=== PATIENT | male | born 1945 | race Caucasian/White ===

== ENCOUNTER 2018-05-10 16:17 | Inpatient (IN) | payer OTHER ==
[~2018-05-10] VITALS: Ht 182.9 cm; Wt 93.4 kg
[2018-05-10 16:24] VITALS: BP 162/112
[2018-05-10 16:48] LABS: ABSOLUTE LYMPHOCYTES 1.5 thou/uL (0.8-5.3); ABSOLUTE MONOCYTES 0.5 thou/uL (0.0-1.2); ABSOLUTE NEUTROPHILS 5.8 thou/uL (1.6-8.1); BASOPHILS 0.5 %; EOSINOPHILS 0.1 %; LYMPHOCYTES 18.5 %; MCH 35.5 pg (26.0-34.0); MCHC 35.4 g/dL (28.0-37.0); MCV 100.4 fL (80.0-100.0); MONOCYTES 6.9 %; MPV 8.1 fl. (7.2-11.1); NUCLEATED RBCS 0 /100WBC; PLATELET COUNT* 156 thou/uL (150-400); RBC 4.78 mil/uL (4.50-6.00); RDW-CV 12.8 % (10.5-14.5); WBC 7.8 thou/uL (4.0-11.0)
[2018-05-10 16:57] LABS: ANION GAP 10 mmol/L (7-16); BUN 9 mg/dL (7-18); CALCIUM 9.5 mg/dL (8.5-10.1); CHLORIDE 102 mmol/L (98-107); CO2 25 mmol/L (21-32); CREATININE 0.9 mg/dL (0.6-1.3); GLUCOSE 97 mg/dL (70-99); POTASSIUM 3.9 mmol/L (3.5-5.1); SODIUM 137 mmol/L (136-145)
[2018-05-10 17:00] LABS: APTT 28.4 Seconds (25.0-31.3); PROTIME 10.5 Seconds (9.20-11.50)
[2018-05-10 17:13] LABS: TROPONIN-I LEVEL <0.06 ng/mL (<0.06)
[2018-05-10 17:16] LABS: ALBUMIN 4.1 g/dL (3.4-5.0); ALKALINE PHOSPHATASE 47 U/L (46-116); CK-MB MASS 1.2 ng/mL (<0.5-3.6); LIPASE 163 U/L (73-393); MAGNESIUM 1.2 mg/dL (1.8-2.4); NT-PRO BRAIN NAT PEPTIDE 321 pg/mL (<300); SGOT 46 U/L (15-37); SGPT 66 U/L (30-65); TOTAL BILIRUBIN 0.9 mg/dL (<0.1-1.0); TOTAL PROTEIN 7.3 g/dL (6.4-8.2)
[2018-05-10] MEDS ORDERED: ATORVASTATIN CA40 MG PO (17:16)
[2018-05-10 19:53] VITALS: BP 149/93
[2018-05-10 20:00] VITALS: BP 131/86
[2018-05-11] VITALS: BP 118/77; BP 138/70
--- NOTE | 2018-05-11 02:23 | NUR ---
PATIENT RESTED IN BED, NO ACUTE CHANGES. PATIENT DID NOT COMPLAIN OF SOA, LIGHTHEADNESS, OR DISTRESS. CALL LIGHT WITHIN REACH, HOURLY ROUNDING OBSERVED. PATIENT DID NOT SHOW SIGNS OF WITHDRAW.
[2018-05-11 04:00] VITALS: BP 114/64
[2018-05-11 05:22] LABS: HEMATOCRIT 41.3 % (42.0-52.0); MCH 35.8 pg (26.0-34.0); MCHC 35.6 g/dL (28.0-37.0); MCV 100.4 fL (80.0-100.0); MPV 8.5 fl. (7.2-11.1); RBC 4.11 mil/uL (4.50-6.00); RDW-CV 12.7 % (10.5-14.5); WBC 5.6 thou/uL (4.0-11.0)
[2018-05-11 05:29] LABS: HEMOGLOBIN 14.7 gm/dL (14.0-18.0)
[2018-05-11 05:55] LABS: ALBUMIN 3.4 g/dL (3.4-5.0); CALCIUM 8.7 mg/dL (8.5-10.1); CREATININE 0.7 mg/dL (0.6-1.3); MAGNESIUM 1.5 mg/dL (1.8-2.4); POTASSIUM 3.6 mmol/L (3.5-5.1); TOTAL PROTEIN 5.7 g/dL (6.4-8.2)
[2018-05-11 07:30] VITALS: BP 109/65
--- NOTE | 2018-05-11 10:45 | NUR ---
Pt is A&O. Resides at home with his dtr and her family. Independent and active. No DME. No hx of HH or SNF. Goal is home at dc, no needs anticipated. Following.
[2018-05-11 12:00] VITALS: BP 115/58
--- NOTE | 2018-05-11 15:11 | NUR ---
VSS, ASSUMED CARE OF PT IN THE AM, ASSESSMENT PERFORMED AND CHARTED, FALL PRECAUTIONS IN PLACE AND CALL LIGHT IN REACH, PT IS A&0$ and up AD RUBEN, ON RA, TRACING SR ON THE MONITOR, PT GOAL IS TO REMIAN IN SR AND SAFETY, MAYBE D/C TO HOME, WILL FOLLOW WITH PLAN OF CARE.
[2018-05-11 15:41] VITALS: BP 119/72
--- NOTE | 2018-05-11 15:53 | EKG ---
[place] [address] ELECTROCARDIOGRAM REPORT Name: JACK POLK Room: [address] ADM IN M.R.#: [id number] Admission: 05/10/18 Attend Phys: Gema Blackwell MD Discharge: Date of : 47 Report #: [id number] THIS REPORT FOR: //name// [facility] ED Test Date: 2018-05-10 Test Time: 16:22:01 Pat Name: JACK POLK Department: Room: [facility] Gender: M Jacquard Plate Maker: ROCKY : 1945 Requested By: Alverto Michael Order Number: [id number] MD: Ermias Peacock Measurements Intervals [place] Rate: 148 P: 120 DE: 71 QRS: 73 QRSD: 122 T: 35 QT: 314 QTc: 493 Interpretive Statements Atrial flutter with 2:1 block Nonspecific intraventricular conduction delay No previous ECG available for comparison Electronically Signed On 05-11-2018 15:53:47 BOX STRAPPER by Ermias Peacock [email or web address] <ELECTRONICALLY SIGNED> By: Ermias Peacock MD, [facility] 05/11/18 1553 1622 21 Ermias Peacock MD, FACC /EPI
--- NOTE | 2018-05-11 15:54 | EKG ---
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 : 1945 Requested By: Alverto Michael Order Number: [id number] Reading MD: Ermias Peacock Measurements Intervals [place] Rate: 123 P: TN: QRS: 10 QRSD: 96 T: -4 QT: 306 QTc: 438 Interpretive Statements Atrial fibrillation Borderline T abnormalities, anterior leads No previous ECG available for comparison Electronically Signed On 05-11-2018 15:54:08 STUDENT RECORDS COORDINATOR by Ermias Peacock [email or web address] <ELECTRONICALLY SIGNED> By: Ermias Peacock MD, [facility] 05/11/18 1554 1758 1758 Ermias Peacock MD, FACC /EPI
--- NOTE | 2018-05-11 15:56 | EKG ---
[place] [address] ELECTROCARDIOGRAM REPORT Name: JACK POLK Room: [address] ADM IN M.R.#: [id number] Admission: 05/10/18 Attend Phys: Gema Blackwell MD Discharge: Date of : 47 Report #: [id number] THIS REPORT FOR: //name// [facility] Test Date: 2018-05-10 Test Time: 23:30:12 Pat Name: JACK POLK Department: Room: [facility] Gender: M Animal Skinner: : 1945 Requested By: Alverto Michael Order Number: [id number] MD: Ermias Peacock Measurements Intervals [place] Rate: 94 P: SD: QRS: 61 QRSD: 102 T: 29 QT: 370 QTc: 463 Interpretive Statements Atrial fibrillation Borderline low voltage, extremity leads Nonspecific T abnormalities, anterior leads No previous ECG available for comparison Electronically Signed On 05-11-2018 15:56:09 LEACH RUNNER by Ermias Peacock [email or web address] <ELECTRONICALLY SIGNED> By: Ermias Peacock MD, [facility] 05/11/18 1556 D: [id number] Ermias Peacock MD, FACC /EPI
--- NOTE | 2018-05-11 15:58 | EKG ---
[place] [address] ELECTROCARDIOGRAM REPORT Name: JACK POLK Room: [address] ADM IN M.R.#: [id number] Admission: 05/10/18 Attend Phys: Gema Blackwell MD Discharge: Date of : 47 Report #: [id number] THIS REPORT FOR: //name// [facility] Test Date: 2018-05-11 Test Time: 04:58:32 Pat Name: JACK POLK Department: Room: [address] Gender: M Dinkey Engineer: : 1945 Requested By: Alverto Michael Order Number: [id number] MD: Ermias Peacock Measurements Intervals [place] Rate: 65 P: 22 WY: 147 QRS: 37 QRSD: 102 T: 28 QT: 409 QTc: 426 Interpretive Statements Sinus rhythm Nonspecific T abnormalities, anterior leads No previous ECG available for comparison Electronically Signed On 05-11-2018 15:57:58 IMMIGRATION SERVICES OFFICER by Ermias Peacock [email or web address] <ELECTRONICALLY SIGNED> By: Ermias Peacock MD, [facility] 05/11/18 1557 0458 0458 Ermias Peacock MD, FACC /EPI
[2018-05-11 20:00] VITALS: BP 132/80
[2018-05-12 00:11] VITALS: BP 131/73
--- NOTE | 2018-05-12 03:58 | NUR ---
PATIENT RESTED IN BED, NO ACUTE CHANGES. PATIENT DID NOT SHOW SIGNS OF DISTRESS. CALL LIGHT WITHIN REACH, HOURLY ROUNDING OBSERVED.
[2018-05-12 04:12] VITALS: BP 115/75
[2018-05-12 07:30] VITALS: BP 114/66
[2018-05-12 10:25] VITALS: BP 114/66
[2018-05-12] MEDS ORDERED: CARDIZEM CD120 MG PO (10:33)
[2018-05-12] MEDS ORDERED: FLECAINIDE ACET50 M1 PO (10:33)
[2018-05-12] MEDS ORDERED: ASPIR 8181 MG PO (10:38)
--- NOTE | 2018-05-12 11:37 | NUR ---
RECEIVED PT CARE 0700. HE IS ALERT/ORIENTED X4. VSS. 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 HE IS UP AMBULATORY IN ROOM AND HALLWAY. GAIT IS STEADY. DC ORDERS RECEIVED PER DR QUAN. IV DISCONTINUED. HARNESS WORKER REMOVED AND RETURNED TO NURSE'S DESK. ALL HIS BELONGINGS PACKED AND TAKEN OUT TO HIS CAR IN ER PARKING LOT. PATIENT STARTED HIS CAR TO GET WARM AND MELT THE ICE OFF BUT RETURNED TO ROOM TO SIGN DC PAPER AND GET SCRIPTS. NO QUESTIONS OR CONCERNS AT DISCHARGE. LEAVING VIA AMBULATORY PER HIS REQUEST.
== END 2018-05-12 11:30 | disposition home or self-care (01) | DRG 310 ==
LOC: M.ERS 16:17 → M.TBA-ER 18:04 → M.2W 18:04
PROVIDERS: Family Medicine; ADMIT Internal Medicine
DX: I48.0 Paroxysmal atrial fibrillation (principal); F10.10 Alcohol abuse, uncomplicated; I10 Essential (primary) hypertension; E78.5 Hyperlipidemia, unspecified; F17.210 Nicotine dependence, cigarettes, uncomplicated; Z79.82 Long term (current) use of aspirin; Z79.899 Other long term (current) drug therapy

== ENCOUNTER 2018-12-03 18:34 | Inpatient (IN) | payer OTHER ==
[~2018-12-03] VITALS: Ht 182.9 cm; Wt 88.0 kg
[~2018-12-03 18:34] MED LIST: ASPIR 8181 MG PO; CARDIZEM CD120 MG PO; FLECAINIDE ACET50 M1 PO; LIPITOR40 MG PO
[2018-12-03 18:38] VITALS: BP 127/84
[2018-12-03] MEDS ORDERED: LOPRESSOR25 PO (18:42)
[2018-12-03] MEDS ORDERED: ELIQUIS2.5 MG PO (18:43)
[2018-12-03 18:54] LABS: ABSOLUTE LYMPHOCYTES 1.1 thou/uL (0.8-5.3); ABSOLUTE MONOCYTES 0.8 thou/uL (0.0-1.2); ABSOLUTE NEUTROPHILS 3.8 thou/uL (1.6-8.1); BASOPHILS 0.4 %; EOSINOPHILS 0.1 %; HEMATOCRIT 35.7 % (42.0-52.0); HEMOGLOBIN 12.6 gm/dL (14.0-18.0); LYMPHOCYTES 18.6 %; MCH 35.9 pg (26.0-34.0); MCHC 35.3 g/dL (28.0-37.0); MCV 101.8 fL (80.0-100.0); MONOCYTES 13.5 %; MPV 7.5 fl. (7.2-11.1); NUCLEATED RBCS 0 /100WBC; PLATELET COUNT* 119 thou/uL (150-400); POLYS 67.4 %; RBC 3.51 mil/uL (4.50-6.00); WBC 5.7 thou/uL (4.0-11.0)
[2018-12-03 19:05] LABS: ANION GAP 15 mmol/L (7-16); BUN 11 mg/dL (7-18); CALCIUM 8.8 mg/dL (8.5-10.1); CHLORIDE 100 mmol/L (98-107); CO2 25 mmol/L (21-32); CREATININE 0.9 mg/dL (0.6-1.3); GLUCOSE 94 mg/dL (70-99); POTASSIUM 4.1 mmol/L (3.5-5.1); SODIUM 140 mmol/L (136-145)
--- NOTE | 2018-12-03 19:11 | NUR ---
RELEASE OF INFORMATION SIGNED AND FAXED TO [employer] FOR RECORDS.
[2018-12-03 19:30] LABS: ALBUMIN 4.1 g/dL (3.4-5.0); ALKALINE PHOSPHATASE 52 U/L (46-116); CK-MB MASS 1.7 ng/mL (<0.5-3.6); LIPASE 209 U/L (73-393); MAGNESIUM 2.7 mg/dL (1.8-2.4); NT-PRO BRAIN NAT PEPTIDE 350 pg/mL (<300); SGOT 134 U/L (15-37); SGPT 190 U/L (30-65); TOTAL BILIRUBIN 1.5 mg/dL (<0.1-1.0); TOTAL PROTEIN 6.8 g/dL (6.4-8.2); TROPONIN-I LEVEL <0.06 ng/mL (<0.06)
[2018-12-03] MEDS ORDERED: BAYER CHEWABLE81 MG PO (20:50)
[2018-12-03 21:22] VITALS: BP 125/87
[2018-12-03 21:42] VITALS: BP 125/87
[2018-12-04 03:48] VITALS: BP 126/80
--- NOTE | 2018-12-04 06:10 | NUR ---
ASSUMED CARE OF PT AT 2200. PT IS ALERT AND ORIENTED. PERRLA. STEADY GAIT. PTS HEART RATE HAS BEEN ELEVATED. PT STARTED ON CARDIZEM. MD IS IN AFIB WITH RVR. PT IS SLEEPING QUIETLY IN BED. RESPIRATIONS ARE EVEN AND NONLABORED. WILL CONTINUE TO MONITOR PT.
[2018-12-04 07:40] VITALS: BP 128/73
[2018-12-04 12:00] VITALS: BP 117/67
[2018-12-04 16:00] VITALS: BP 117/75
[2018-12-04 20:00] VITALS: BP 124/78
--- NOTE | 2018-12-04 20:23 | NUR ---
ASSUSSMED CARE OF PT APPROX 0730. REASSESSMENT COMPLETED CHARTED. MEDICATIONS GIVEN CHARTED. PT EDUCATION GIVEN ABOUT NEW AND CURRENT MEDICATIONS. PT CALLS OUT FOR NEEDS. ROUNDING COMPLETED. PT NEEDS MET. PERSONAL BELONGINGS AND CALL LIGHT WITHIN REACH.
[2018-12-05] VITALS: BP 112/70
--- NOTE | 2018-12-05 03:41 | NUR ---
PT ALERT ORIENTED. UP TO BR. TELEMETRY SHOWS AFIB 90S-100 AT REST. HR UP TO 140S WHEN GOING TO BR BUT RETURNS BACK TO 90S-100. MELATONIN AND BENADRYL GIVEN FOR SLEEP APPROX 3 HRS APART. TYLENOL GIVEN FOR BACK PAIN.
[2018-12-05 04:12] VITALS: BP 105/68
--- NOTE | 2018-12-05 07:34 | EKG ---
[place] [address] ELECTROCARDIOGRAM REPORT Name: JACK POLK Room: [address] ADM IN .R.#: [id number] Admission: 12/03/18 Attend Phys: Yamileth Hurst MD Discharge: Date of : 47 Report #: [id number] THIS REPORT FOR: //name// [facility] ED Test Date: 2018-12-03 Test Time: 18:41:26 Pat Name: JACK POLK Department: Room: [facility] Gender: M Vp Data: YUMI : 1945 Requested By: Alverto Michael Order Number: [id number] MD: Michael Grant Measurements Intervals [place] Rate: 110 P: [place]: QRS: 42 QRSD: 98 T: 43 QT: 322 QTc: 436 Interpretive Statements Atrial fibrillation Borderline low voltage, extremity leads Compared to ECG 05/11/2018 04:58:32 Sinus rhythm no longer present T-wave abnormality no longer present Electronically Signed On 12-05-2018 7:34:16 CDT by Michael Grant [email or web address] <ELECTRONICALLY SIGNED> By: Michael Grant MD, [facility] 12/05/18 0734 1841 1841 Michael Grant MD, [facility] /EPI
[2018-12-05 08:30] VITALS: BP 114/74
--- NOTE | 2018-12-05 10:40 | CON ---
[address] [address] CONSULTATION Name: JACK POLK Room: [address] IN .R.#: [id number] Admission: 12/03/18 Attend Phys: Yamileth Hurst MD Discharge: Date of : 47 Report #: [id number] THIS REPORT FOR: //name// CC: [facility] physician/PCP Yamileth Hurst DATE OF SERVICE: 12/04/2018 CARDIOLOGY CONSULTATION HISTORY OF PRESENT ILLNESS: The patient is a 73-year-old single white male who I was asked to see in the hospital after he had an episode of atrial fibrillation. The patient initially presented in May who complained of earache. He went to see his primary care physician and was noted to be in atrial fibrillation. He was admitted here to [facility] and seen by my nurse practitioner, Mary Davila. Rather attempt at cardioversion, it is recommended he undergo rate control only. Because of his history of alcohol abuse, he is not felt to be a very good candidate for anticoagulation and he was given only an aspirin a day. He was sent home on flecainide after he converted to sinus rhythm in addition to Cardizem-CD. However, the patient had to be admitted to [place] in September with recurrent atrial fibrillation. He was admitted there for 2 days and apparently sent home on Eliquis and Cardizem. The patient notes that 2 days ago, he actually fell going up some steps carrying some furniture. He struck his left side. The patient complained yesterday, he felt weak and lightheaded. He actually went to the [place] Emergency Room and apparently was found to be back in atrial fibrillation. It is recommended he be admitted. However, after seeing in the Emergency Room at [place] for 2 days, he decided to leave and drive himself over to [facility] and was admitted last night. He denies any palpitations. Denies a history of chest pain. He does get short of breath on exertion. He has a chronic cough. Denied any palpitations or loss of consciousness. PAST MEDICAL HISTORY: He has had an arm fracture, hernia repair. No history of hypertension, diabetes, or hyperlipidemia. CURRENT MEDICATIONS: That he ran out of included Lipitor, diltiazem, Eliquis. ALLERGIES: He has no known drug allergies. FAMILY HISTORY: Negative for heart disease. 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 He is . He smokes half pack of cigarettes a day, drinks up to a pint of whiskey a day. No illicit drug use. He has [place] [address] CONSULTATION Name: JACK POLK Room: [address] ADM IN .R.#: [id number] Admission: 12/03/18 Attend Phys: Yamileth Hurst MD Discharge: Date of : 47 Report #: [id number] REVIEW OF SYSTEMS: He has had chronic cough. No history of GI bleeding. No history of stroke, no history of liver disease, kidney disease, cancer, psychiatric illness, chronic skin condition. PHYSICAL EXAMINATION: GENERAL: Revealed an elderly male, lying in bed, appeared in no acute distress. VITAL SIGNS: He had a blood pressure of 130/80, pulse is 110, respirations are nonlabored. He is afebrile. HEENT: He was anicteric. Conjunctivae pink. Mucous membranes moist. NECK: Veins nondistended. No carotid bruits. Neck supple. CHEST: Clear to auscultation. CARDIOVASCULAR: Irregular rhythm. ABDOMEN: Soft. EXTREMITIES: Had no edema. Dorsalis pedis pulse 2+ bilaterally. SKIN: Warm, dry. NEUROLOGIC: Nonfocal. LYMPH: No adenopathy. MUSCULOSKELETAL: No joint effusion. DIAGNOSTIC DATA: His ECG shows atrial fibrillation with an increased ventricular response rate. His workup, he actually had an echocardiogram done last May, the results of which are unknown at this time. X-rays in the Emergency Room last night, he had a portable chest x-ray that showed no acute abnormality, small 11 mm nodule in the left lower lobe. CT scan of the chest was performed last night that showed no pulmonary nodule. No pulmonary embolus, no aortic dissection. LABORATORY WORK: Sodium 140, creatinine 0.9. His SGOT 134, SGPT 190, bilirubin 1.5, alkaline phosphatase 52. His TSH in May was 0.88. White blood cell count 5.7, hemoglobin 12.6. IMPRESSION AND RECOMMENDATIONS: 1. Permanent atrial fibrillation. I would not recommend attempts at cardioversion. I would aim for rate control. Continue diltiazem and metoprolol. The patient apparently has a BRANDIE-VASc score of only 1. 2. Tobacco abuse. 3. Alcohol abuse. 4. Chronic bronchitis. 5. Recent fall. No history of syncope. <ELECTRONICALLY SIGNED> By: Michael Grant MD, [facility] 12/05/18 1040 0822 [id number] Grant MD, FACC /nt
[2018-12-05] MEDS ORDERED: CARDIZEM CD 18180 M3 PO (11:10)
[2018-12-05 11:12] VITALS: BP 114/74
--- NOTE | 2018-12-05 12:40 | NUR ---
RECIEVED REPORT AND ASSUMED CARE OF PT AT 0700. PT WAS UP AND MOVING IN ROOM WITH ELEVATED HEART RATE WITH AFIB. RECOMMENDED PT TO REMAIN IN BED, NOTIFED DOCTOR AND ADMIN MEDICATIONS. PT NOT SCORING ON CWIA. A&O X4, UP AD LID IN ROOM. SKIN WDI WITH BURSING R/T FALL PROIR TO ADMISSION. PT C/O PAIN OF 8 WAS GIVE PRN MEDICATION AND LIDOCAINE PATCH ORDERED. PAIN WAS REDUCED TO A TOLERABLE 6. RECIEVED DISCHARGE ORDER FROM DOCTOR. EDUCATED PT ON MEDICATIONS AND DISCHARGE ORDERS, OBTRAINED PTS BELONGINGS. CREATIVE SERVICES INTERN ASSISTED PT OFF UNIT AT 1225.
--- NOTE | 2018-12-05 14:38 | NUR ---
I HAVE REVIEWED AND AGREE WITH THE ASSESMENT AND NOTE OF JENNIFER DELA CRUZ ON 12/05/18
== END 2018-12-05 12:24 | disposition home or self-care (01) | DRG 309 ==
LOC: M.ERS 18:34 → M.2W 20:39 → M.TBA-ER 20:39 → M.2W 20:57
PROVIDERS: Family Medicine; ADMIT Family Medicine
DX: I48.91 Unspecified atrial fibrillation (principal); D68.69 Other thrombophilia; J42 Unspecified chronic bronchitis; I10 Essential (primary) hypertension; I48.92 Unspecified atrial flutter; D69.6 Thrombocytopenia, unspecified; R74.0 Nonspecific elevation of levels of transaminase and lactic acid dehydrogenase [LDH]; E80.6 Other disorders of bilirubin metabolism; R91.1 Solitary pulmonary nodule; F10.10 Alcohol abuse, uncomplicated; Z91.81 History of falling; Z79.899 Other long term (current) drug therapy; Z79.82 Long term (current) use of aspirin; Z87.891 Personal history of nicotine dependence; Z80.0 Family history of malignant neoplasm of digestive organs; Z81.8 Family history of other mental and behavioral disorders